=== PATIENT | female | born 1975 | race Caucasian/White ===

== ENCOUNTER 2019-05-31 22:11 | Emergency (ER) | payer OTHER ==
[~2019-05-31] VITALS: Ht 163.8 cm; Wt 93.6 kg
[2019-05-31 22:48] LABS: HEMATOCRIT 37.9 % (37.0-47.0); IMMATURE GRANULOCYTES 0.4 % (0.0-5.0); MEAN CELL VOLUME 92.9 fL CALC (80.0-100.0); MEAN CORPUSCULAR HGB 31.9 pG CALC (26.0-32.0); MEAN CORPUSCULAR HGB CONC 34.3 g/L CALC (32.0-36.0); NEUT# 7.46 thou/uL (2.00-7.15); RED BLOOD COUNT 4.08 mill/uL (4.20-5.60); RED CELL DISTRI WIDTH 12.5 % (11.5-15.5)
[2019-05-31] MEDS ORDERED: TORADOL PO (23:33)
[2019-05-31 23:42] VITALS: BP 120/69
== END 2019-05-31 23:42 | disposition home or self-care (01) | DRG 866 ==
LOC: ED 22:11
PROVIDERS: Family Medicine
DX: B34.9 Viral infection, unspecified (principal)

== ENCOUNTER 2019-12-24 20:06 | Observation (INO) | payer OTHER ==
[~2019-12-24] VITALS: Ht 162.6 cm; Wt 94.2 kg
[~2019-12-24 20:06] MED LIST: TORADOL PO
--- NOTE | 2019-12-24 20:12 | NUR ---
TO ROOM 13
--- NOTE | 2019-12-24 20:52 | NUR ---
PT SITTING UPRIGHT IN BED WITH NO S/S OF ANY ACUTE DISTRESS NOTED. VS WNL, BREATHING EASY AND UNLABORED. PT STATES PAIN IS 2/10 ON NUMERIC PAIN SCALE. PT STATES MORE DISCOMFORT THAN PAIN.
--- NOTE | 2019-12-24 21:41 | NUR ---
PT RECEIVES ASPIRIN PO TOLERATED WELL, 0 S/S OF ANY ACUTE DISTRESS NOTED AT THIS TIME.
[2019-12-24 21:42] LABS: HEMATOCRIT 39.4 % (37.0-47.0); HEMOGLOBIN 13.6 g/dl (12.0-16.0); IMMATURE GRANULOCYTES 0.2 % (0.0-5.0); MEAN CORPUSCULAR HGB 31.4 pG CALC (26.0-32.0); MEAN CORPUSCULAR HGB CONC 34.5 g/L CALC (32.0-36.0); NEUT# 5.85 thou/uL (2.00-7.15); RED BLOOD COUNT 4.33 mill/uL (4.20-5.60); RED CELL DISTRI WIDTH 12.3 % (11.5-15.5)
[2019-12-24 21:45] LABS: URINE BILIRUBIN - DIPSTICK NEGATIVE (NEGATIVE); URINE BLOOD DIPSTICK SMALL (NEGATIVE); URINE COLOR YELLOW; URINE GLUCOSE - DIPSTICK NEGATIVE (NEGATIVE); URINE KETONE NEGATIVE (NEGATIVE); URINE LEUK ESTERASE TRACE (NEGATIVE); URINE NITRITE - DIPSTICK NEGATIVE (Negative); URINE PROTEIN - DIPSTICK NEGATIVE (NEG-TRACE); URINE UROBILINOGEN - DIPSTICK 0.2 E.U./dL (0.2)
[2019-12-24 21:59] LABS: INTERNATIONAL NORMALIZED RATIO 0.9 RATIO (0.7-1.3); PROTHROMBIN TIME 9.9 SECONDS (9.0-12.5)
[2019-12-24 22:00] LABS: ALBUMIN 4.5 g/dL (3.2-5.0); ALKALINE PHOSPHATASE 58 u/l (38-126); AMYLASE 53 u/l (30-110); ANION GAP 15 (6-22 (CALC)); BILIRUBIN, TOTAL 0.9 mg/dL (0.0-1.4); BUN 17 mg/dL (7-17); BUN/CREATININE RATIO 35 (12-20 (CALC)); CARBON DIOXIDE 24 mmol/l (22-30); CHLORIDE 102 mmol/l (95-108); CREATININE 0.5 mg/dL (0.5-1.0); GFR > 60 ML/MIN (>=60 (CALC)); GFR FOR AFR.AMER. > 60 ML/MIN (>=60 (CALC)); LIPASE 52 u/l (23-300); SGOT/AST 26 u/l (14-36); SODIUM 137 mmol/l (137-146); TOTAL PROTEIN 8.2 g/dL (6.3-8.2)
[2019-12-24 22:05] LABS: URINE SQUAMOUS EPITHELIAL CELL FEW EPI/hpf (0-FEW)
[2019-12-24 22:11] LABS: MYOGLOBIN 17 ng/mL (0 - 62)
--- NOTE | 2019-12-25 00:54 | NUR ---
PT IS ADMITTED, REPORT GIVEN TO RN PT TO GO TO ROOM [facility]. PT STATES HAVING A HEADACHE BUT NO CHEST PAIN AT THIS TIME. PT STATES THAT SHE HASNT BEEN FEELING WELL ON AND OFF ALL WEEK. [place] NOTIFIED. PT TRANSPORTED TO ROOM.
[2019-12-25 01:18] VITALS: BP 109/76
--- NOTE | 2019-12-25 02:00 | NUR ---
PATIENT ADMITTED FROM ER VIA WHEELCHAIR WITH ER STAFF IN ATTENDANCE. PATIENT ABLE TO WALK TO STANDING SCALE AND THEN TO BED. ALERT AND ORIENTEDX3. PATIENT STATES THAT SHE CAME TO THE ER TONIGHT AFTER "NOT FEELING RIGHT" FOR THE LAST WEEK OR SO. STATES THAT HER CHEST DIDN'T FEEL RIGHT, RECENT HEADACHE OVER THE WEEK-END WITH BLURRED VISION. DENIES ANY VISUAL PROBLEMS AT THIS TIME, TELE MONITOR IN PLACE. SALINE LOCK TO RIGHT HAND INTACT AND ISHEALTHY AT THIS TIME. PATIENT IS C/O SEVERE HEADACHE AND NITRO OINT PATCH REMOVED. POC DISCUSSED WITH PATIENT. ORIENTED PATIENT TO ROOM AND SURROUNDINGS. INSTRUCTED ON USE OF NURSE CALL LIGHT SYSTEM, TV REMOTE AND PHONE. SAFETY PRECAUTIONS REVIEWED. CALL LIGHT IN REACH. WILL CONT TO MONITOR.
[2019-12-25 04:00] VITALS: BP 101/55
--- NOTE | 2019-12-25 04:30 | NUR ---
PATIENT RESTING IN BED-TROP DRAWN. C/O SEVERE H/A-SPOKE WITH DR. AMAYA AND ORDERED PERCOCET 5/325MG-WAS GIVEN. SAFETY PRECAUTIONS REINFORCED. CALL LIGHT IN REACH. WILL CONT TO MONITOR.
--- NOTE | 2019-12-25 06:58 | NUR ---
REPORT RECEIVED FROM BEA SHANKAR. PT RESTING IN BED APPEARS TO BE SLEEPING. NO S/S OF DISTRESS AT THIS TIME. WILL CONTINUE TO MONITOR.
[2019-12-25 08:32] LABS: CHOLESTEROL HDL RATIO 4.3 (<4.4 (CALC))
[2019-12-25 09:49] VITALS: BP 99/47
--- NOTE | 2019-12-25 09:49 | NUR ---
PT RESTING IN BED. ALERT AND ORIENTED. RESPIRATIONS EVEN AND UNLABORED ON RA. LUNGS SOUND CLEAR. PEDAL PULSES STRONG. PT REPORTS HAVING A HEADACHE WITH PAIN RATING 3/10 STATING "MY HEADACHE ISN'T BAD IT WAS LAST NIGHT". PT DENIES ANY NEEDS AT THIS TIME. SAFETY PRECAUTIONS IN PLACE. WILL CONTINUE TO MONITOR.
[2019-12-25 11:32] VITALS: BP 92/47
[2019-12-25] MEDS ORDERED: ASPIRIN 81 LOW81 MG PO (12:04)
--- NOTE | 2019-12-25 12:05 | NUR ---
PT RESTING IN BED, ALERT AND ORIENTED. PT EDUCATED ON POC. SAFETY PRECAUTIONS IN PLACE. WILL CONTINUE TO MONITOR.
--- NOTE | 2019-12-25 15:19 | NUR ---
Discharge instructions given. Patient verbalizes understanding of same. Discharged in stable condition via Wheelchair to Home with father. All belongings sent with pt.
--- NOTE | 2019-12-25 15:30 | NUR ---
Discharge instructions given. Patient verbalizes understanding of same. Discharged in stable condition via AMBULATORY to Home with *Other. All belongings sent with pt.
== END 2019-12-25 15:30 | disposition home or self-care (01) | DRG 313 ==
LOC: ED 20:06 → ED-I 22:50 → ED 23:45 → MS2 23:46
PROVIDERS: Emergency Medicine; Nurse Practitioner Family; ADMIT Internal Medicine; ATTEND Internal Medicine
DX: R07.9 Chest pain, unspecified (principal); R51 Headache; F41.9 Anxiety disorder, unspecified; Z82.49 Family history of ischemic heart disease and other diseases of the circulatory system
CPT/HCPCS: G0378

== ENCOUNTER 2021-02-07 | Emergency (ER) | payer OTHER ==
[~2021-02-07] MED LIST changes: +ASPIRIN 81 LOW81 MG PO
[2021-02-07] MEDS ORDERED: GENTAMICIN SULF5 ML OS (23:26)
== END 2021-02-07 23:33 | disposition home or self-care (01) | DRG 125 ==
DX: S05.02XA Injury of conjunctiva and corneal abrasion without foreign body, left eye, initial encounter (principal); X58.XXXA Exposure to other specified factors, initial encounter

== ENCOUNTER 2021-05-21 16:52 | Emergency (ER) | payer OTHER ==
[~2021-05-21 16:52] MED LIST changes: +GENTAMICIN SULF5 ML OS
[2021-05-21 17:52] LABS: HEMATOCRIT 41.7 % (37.0-47.0); HEMOGLOBIN 14.2 g/dl (12.0-16.0); MEAN CELL VOLUME 92.9 fL CALC (80.0-100.0); MEAN CORPUSCULAR HGB 31.6 pG CALC (26.0-32.0); MEAN CORPUSCULAR HGB CONC 34.1 g/dL CAL (32.0-36.0); NEUT# 2.26 thou/uL (2.00-7.15); RED BLOOD COUNT 4.49 mill/uL (4.20-5.60); RED CELL DISTRI WIDTH 12.3 % (11.5-15.5)
[2021-05-21 18:02] LABS: ALBUMIN 4.2 g/dL (3.2-5.0); ALKALINE PHOSPHATASE 62 u/l (38-126); ANION GAP 13 (6-22 (CALC)); BILIRUBIN, TOTAL 0.9 mg/dL (0.0-1.4); BUN 9 mg/dL (7-17); BUN/CREATININE RATIO 18 (12-20 (CALC)); CARBON DIOXIDE 25 mmol/l (22-30); CHLORIDE 104 mmol/l (95-108); CREATININE 0.5 mg/dL (0.5-1.0); GFR > 60 ML/MIN (>=60 (CALC)); GFR FOR AFR.AMER. > 60 ML/MIN (>=60 (CALC)); LIPASE 72 u/l (23-300); POTASSIUM 3.5 mmol/l (3.5-5.1); SGOT/AST 31 u/l (14-36); SODIUM 138 mmol/l (137-146); TOTAL PROTEIN 7.9 g/dL (6.3-8.2)
[2021-05-21 18:08] LABS: D-DIMER 0.46 mg/L (0.19-0.60)
[2021-05-21 18:12] LABS: ACT PARTIAL THROMBO TIME 22.5 SECONDS (20.0-32.5); INTERNATIONAL NORMALIZED RATIO 0.9 RATIO (0.7-1.3); PROTHROMBIN TIME 9.9 SECONDS (9.0-12.5)
[2021-05-21] MEDS ORDERED: ZPAK PO (18:46)
[2021-05-21] MEDS ORDERED: ZOFRAN4 MG/TAB PO (18:46)
[2021-05-21] MEDS ORDERED: DECADRON2 MG PO (18:46)
[2021-05-21 19:02] VITALS: BP 136/85
== END 2021-05-21 19:20 | disposition home or self-care (01) | DRG 179 ==
LOC: ED 16:52
DX: U07.1 COVID-19 (principal); E86.0 Dehydration

== ENCOUNTER 2022-07-16 10:32 | Emergency (ER) | payer OTHER ==
[~2022-07-16] VITALS: Ht 162.6 cm; Wt 88.0 kg
[2022-07-16] VITALS (7 sets, daily range): BP systolic 117–154; BP diastolic 65–84
[~2022-07-16 10:32] MED LIST changes: +DECADRON2 MG PO; +ZOFRAN4 MG/TAB PO; +ZPAK PO
== END 2022-07-16 12:04 | disposition home or self-care (01) | DRG 558 ==
LOC: ED 10:32
DX: M67.442 Ganglion, left hand (principal); S66.912A Strain of unspecified muscle, fascia and tendon at wrist and hand level, left hand, initial encounter; X58.XXXA Exposure to other specified factors, initial encounter